=== PATIENT | male | born 1980 | race Caucasian/White ===

== ENCOUNTER 2018-11-22 15:30 | Emergency (ER) | payer MEDICAID ==
[~2018-11-22] VITALS: Ht 182.9 cm; Wt 79.4 kg
--- NOTE | 2018-11-22 15:37 | NUR ---
Patient to ER bed 08 to gown for evaluation. Side rails up.
[2018-11-22 15:40] VITALS: BP_SYST 132
--- NOTE | 2018-11-22 15:40 | NUR ---
Pt brought by self,A&Ox4, pt presents to ER with N/V poor appetite for last week , pt denies pain , skin pink and warm, cap refill <3, VSS, respirations even and unlabored.
--- NOTE | 2018-11-22 16:05 | NUR ---
Dr Tripp at bedside examining patient
[2018-11-22] MEDS ORDERED: NACL 0.9% 1,000 ML IV ONE (16:15)
[2018-11-22] MEDS ORDERED: ONDANSETRON HCL 4 MG/2 ML VIAL IVP ONE (16:15)
[2018-11-22 16:31] LABS: BASOPHILS # (AUTO) 0.1 K/uL (0.0-0.2); BASOPHILS % (AUTO) 0.9 % (0.0-2.0); EOSINOPHILS % (AUTO) 0.3 % (0.0-4.0); HEMATOCRIT 45.3 % (36-54); HEMOGLOBIN 15.4 g/dL (14.0-18.0); LYMPHOCYTES # (AUTO) 1.9 K/uL (1.0-5.5); LYMPHOCYTES % (AUTO) 12.9 % (20.5-51.5); MEAN CORPUSCULAR HEMOGLOBIN 30 pg (27-31); MEAN CORPUSCULAR HGB CONC 34 % (32-36); MEAN CORPUSCULAR VOLUME 90 fL (79.0-98.0); MONOCYTES # (AUTO) 1.3 K/uL (0.0-1.0); MONOCYTES % (AUTO) 8.9 % (1.7-9.3); NEUTROPHILS # (AUTO) 11.1 K/uL (1.8-7.7); PLATELET COUNT (AUTO) 272 K/uL (130-430); RED BLOOD CELL COUNT(AUTO) 5.05 MIL/uL (4.2-6.2); WHITE BLOOD COUNT (AUTO) 14.4 K/uL (4.8-10.8)
[2018-11-22 16:43] LABS: ANION GAP 7 (5-15); CALCIUM 9.4 mg/dL (8.4-11.0); CHLORIDE 98 mmol/L (98-107); CREATININE 1.14 mg/dL (0.55-1.30); GLUCOSE 97 mg/dL (70-99); POTASSIUM 3.7 mmol/L (3.5-5.1); SODIUM SERUM 134 mmol/L (136-145); UREA NITROGEN, BLOOD 10 mg/dL (8-21)
[2018-11-22 16:44] LABS: GFR AFRICAN AMERICAN 93 mL/min (>90)
[2018-11-22 16:47] LABS: ALANINE AMINOTRANSFERASE 42 U/L (12-78); ALBUMIN 4.1 g/dL (3.4-4.8); ASPARTATE AMINOTRANSFERASE 25 U/L (10-37); LIPASE 63 U/L (73-393); TOTAL BILIRUBIN 1.3 mg/dL (0.0-1.0)
--- NOTE | 2018-11-22 16:48 | NUR ---
Pt states he is unable to urinate at this time, Pt refusing urinary catheter.
[2018-11-22 16:51] LABS: ALCOHOL, BLOOD < 3 mg/dL (<10)
--- NOTE | 2018-11-22 17:38 | NUR ---
Pt off the unit for CT
[2018-11-22 19:02] VITALS: BP_SYST 119
--- NOTE | 2018-11-22 19:02 | NUR ---
Patient given written and verbal discharge instructions and verbalizes understanding. ER MD discussed with patient the results and treatment provided. Patient in stable condition. ID arm band removed. IV catheter removed intact and dressing applied, no active bleeding. Rx of ZOFRAN PRILOSEC given. Patient educated on pain management and to follow up with PMD. Pain Scale 0/10. Opportunity for questions provided and answered. Medication side effect fact sheet provided.
== END 2018-11-22 19:02 | disposition home or self-care (01) ==
LOC: SED 15:30
DX: K44.9 Diaphragmatic hernia without obstruction or gangrene (principal); R11.10 Vomiting, unspecified; R03.0 Elevated blood-pressure reading, without diagnosis of hypertension; F17.210 Nicotine dependence, cigarettes, uncomplicated; Z71.6 Tobacco abuse counseling
CPT/HCPCS: 36415; 74021; 74176; 80053; 81002; 83690; 85025; 96361; 96374; 99284; G0482; J2405; J7030; 81025